=== PATIENT | male | born 2000 | race Caucasian/White ===

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

== ENCOUNTER 2022-09-06 12:35 | Emergency (ER) | payer OTHER ==
[~2022-09-06] VITALS: Ht 182.9 cm; Wt 127.0 kg
[2022-09-06] MEDS ORDERED: hydrOXYzine HCL 25 MG TABLET PO ONE (13:30)
[2022-09-06] MEDS ORDERED: IV NORMAL SALINE 1000 ML BAG IV ONE (13:30)
[2022-09-06 13:36] LABS: HEMATOCRIT 44.5 % (36.7-47.1); MEAN CORPUSCULAR HEMOGLOBIN 29.8 uug (23.8-33.4); MEAN CORPUSCULAR VOLUME 87.3 fL (73.0-96.2); PLATELET COUNT (AUTO) 269 K/uL (152-348)
[2022-09-06] MEDS ORDERED: hydrOXYzine HCL 25 MG TABLET ONE (13:44)
--- NOTE | 2022-09-06 14:13 | NUR ---
Pt arrived in the ED w/ c/o shortness of breath r/t anxiety. Pt denies headache, n/v, dizziness. Seen by Dr. Gil for MSE.
[2022-09-06 18:13] LABS: *AMPHETAMINE, URINE NEGATIVE (NEGATIVE); *CANNABINOID, URINE NEGATIVE (NEGATIVE); *COCCAINE, URINE NEGATIVE (NEGATIVE); *PHENCYCLIDINE SCREEN,URINE NEGATIVE (NEGATIVE)
[2022-09-06 18:31] LABS: CARBON DIOXIDE 28 mmol/L (21-32); CHLORIDE 104 mmol/L (98-107); CREATININE 0.7 mg/dL (0.6-1.3); GLUCOSE 107 mg/dL (74-106); UREA NITROGEN, BLOOD 10 mg/dL (7-18)
[2022-09-06] MEDS ORDERED: HYDR-501 PO (18:45)
--- NOTE | 2022-09-06 19:00 | NUR ---
Patient discharged to home in stable condition. Written and verbal after care instructions given. Patient verbalizes understanding of instructions. Stressed follow up or return to ER for worsening s/s.
[2022-09-06 19:01] VITALS: BP 128/79
== END 2022-09-06 19:02 | disposition home or self-care (01) ==
LOC: ER 12:36
DX: F41.9 Anxiety disorder, unspecified (principal); R06.02 Shortness of breath; R00.0 Tachycardia, unspecified; J45.909 Unspecified asthma, uncomplicated; Z87.442 Personal history of urinary calculi
CPT/HCPCS: 99285; 96360; 71045; 80048; 83880; 84443; 85025; 85379; 84484; 36415; 93005 ×2; 80307; J7040; A4663